=== PATIENT | male | born 1995 | race Two or more races ===

== ENCOUNTER 2018-02-01 11:24 | Emergency (ER) | payer OTHER ==
[~2018-02-01] VITALS: Ht 170.2 cm; Wt 63.5 kg
[~2018-02-01 11:24] MED LIST: ABILIFY2 MG ORAL; PROZAC10 MG ORAL
[2018-02-01 12:04] LABS: BASOPHILS % (AUTO) 0.7 % (0.0-2.0); EOSINOPHILS % (AUTO) 3.5 % (0.0-3.0); HEMATOCRIT 47.6 % (42.0-52.0); HEMOGLOBIN 15.9 G/DL (14.2-18.0); LYMPHOCYTES % (AUTO) 13.6 % (20.0-45.0); MEAN CORPUSCULAR VOLUME 83 FL (80-99); MONOCYTES % (AUTO) 5.2 % (1.0-10.0); PLATELET COUNT 286 K/UL (150-450); RED BLOOD COUNT 5.73 M/UL (4.70-6.10); RED CELL DISTRIBUTION WIDTH 11.5 % (11.6-14.8); WHITE BLOOD COUNT 7.8 K/UL (4.8-10.8)
[2018-02-01 12:14] LABS: ANION GAP 11 mmol/L (5-15); BLOOD UREA NITROGEN 6 mg/dL (7-18); CALCIUM 10.1 MG/DL (8.5-10.1); CARBON DIOXIDE 26 MMOL/L (21-32); CHLORIDE 103 MMOL/L (98-107); CREATININE 1.1 MG/DL (0.55-1.30); POTASSIUM 3.9 MMOL/L (3.5-5.1); SODIUM 140 MMOL/L (136-145)
[2018-02-01 12:17] LABS: ALANINE AMINOTRANSFERASE 36 U/L (12-78); ALBUMIN 4.3 G/DL (3.4-5.0); ALKALINE PHOSPHATASE 97 U/L (46-116); ASPARTATE AMINO TRANSFERASE 29 U/L (15-37); BILIRUBIN,TOTAL 0.2 MG/DL (0.2-1.0)
--- NOTE | 2018-02-01 12:29 | Emergency Room Report ---
History of Present Illness General Chief Complaint: Suicidal Source: Patient, EMS (Jerod Nicole DO) Present Illness HPI Patient present by paramedics for reports of suicidal ideations Patient however denies any active thoughts denies any headache Denies any chest pain or shortness of breath Patient reports that he has underlying schizophrenia and takes medication for that Denies any previous attempts of suicide (Jerod Nicole DO) Allergies: Coded Allergies: No Known Allergies (Unverified , 02/01/18) Patient History Past Medical History: see triage record Pertinent Family History: none Reviewed Nursing Documentation: PMH: Agreed; PSxH: Agreed (Jerod Nicole DO) Nursing Documentation-PMH History Of Psychiatric Problem: Yes (Jerod Nicole DO) Review of Systems All Other Systems: negative except mentioned in HPI (Jerod Nicole DO) Physical Exam Vital Signs Date Time Temp Pulse Resp B/P (MAP) Pulse Ox O2 Delivery O2 Flow Rate FiO2 02/01/18 11:12 98.6 110 18 110/60 99 Room Air Sp02 EP Interpretation: reviewed, normal General Appearance: well appearing, no apparent distress Head: normocephalic, atraumatic Eyes: bilateral eye PERRL, bilateral eye EOMI ENT: hearing grossly normal, normal pharynx, TMs + canals normal, uvula midline Neck: full range of motion, supple, no meningismus, no bony tend Respiratory: lungs clear, normal breath sounds, no rhonchi, no respiratory distress, no retraction, no accessory muscle use Cardiovascular #1: normal peripheral pulses, regular rate, rhythm, no edema, no gallop, no JVD, no murmur Gastrointestinal: normal bowel sounds, non tender, soft, no mass, no organomegaly, non-distended, no guarding, no hernia, no pulsatile mass, no rebound Genitourinary: no CVA tenderness Musculoskeletal: normal inspection Neurologic: oriented x3, responsive, pensions retirement plan specialist III-XII nml as tested, motor strength/ tone normal, sensory intact Psychiatric: mood/affect normal - Patient reports suicidal ideation, however does not have any specific plans Skin: normal color, no rash, warm/dry, palpation normal Lymphatic: normal inspection, no adenopathy (Jerod Nicole DO) Medical Decision Making Diagnostic Impression: Primary Impression: Suicidal ideation Additional Impression: Schizophrenia Qualified Codes: F20.9 - Schizophrenia, unspecified ER Course After the patient's presentation psychiatric specialty was contacted Please refer to her note for specific input however patient did have further medication provided by her Was also felt that the patient had been underdosed At this time it was also noted that the patient resides at a [facility] care facility Patient was cleared through psychiatric services if possible referral back to living facility as possible Patient is also medically stable and cleared And further disposition is being sought Labs Test 02/01/18 11:28 02/01/18 11:36 Urine Opiates Screen Negative (NEGATIVE) Urine Barbiturates Screen Negative (NEGATIVE) Phencyclidine (PCP) Screen Negative (NEGATIVE) Urine Amphetamines Screen Negative (NEGATIVE) Urine Benzodiazepines Screen Negative (NEGATIVE) Urine Cocaine Screen Negative (NEGATIVE) Urine Marijuana (THC) Screen Negative (NEGATIVE) White Blood Count 7.8 K/UL (4.8-10.8) Red Blood Count 5.73 M/UL (4.70-6.10) Hemoglobin 15.9 G/DL (14.2-18.0) Hematocrit 47.6 % (42.0-52.0) Mean Corpuscular Volume 83 FL (80-99) Mean Corpuscular Hemoglobin 27.8 PG (27.0-31.0) Mean Corpuscular Hemoglobin Concent 33.5 G/DL (32.0-36.0) Red Cell Distribution Width 11.5 % (11.6-14.8) Platelet Count 286 K/UL (150-450) Mean Platelet Volume 7.1 FL (6.5-10.1) Neutrophils (%) (Auto) 77.0 % (45.0-75.0) Lymphocytes (%) (Auto) 13.6 % (20.0-45.0) Monocytes (%) (Auto) 5.2 % (1.0-10.0) Eosinophils (%) (Auto) 3.5 % (0.0-3.0) Basophils (%) (Auto) 0.7 % (0.0-2.0) Sodium Level 140 MMOL/L (136-145) Potassium Level 3.9 MMOL/L (3.5-5.1) Chloride Level 103 MMOL/L (98-107) Carbon Dioxide Level 26 MMOL/L (21-32) Anion Gap 11 mmol/L (5-15) Blood Urea Nitrogen 6 mg/dL (7-18) Creatinine 1.1 MG/DL (0.55-1.30) Estimat Glomerular Filtration Rate > 60 mL/min (>60) Glucose Level 146 MG/DL (74-106) Calcium Level 10.1 MG/DL (8.5-10.1) Total Bilirubin 0.2 MG/DL (0.2-1.0) Aspartate Amino Transf (AST/SGOT) 29 U/L (15-37) Alanine Aminotransferase (ALT/SGPT) 36 U/L (12-78) Alkaline Phosphatase 97 U/L (46-116) Total Protein 8.7 G/DL (6.4-8.2) Albumin 4.3 G/DL (3.4-5.0) Globulin 4.4 g/dL Albumin/Globulin Ratio 1.0 (1.0-2.7) Salicylates Level 1.6 ug/mL (2.8-20) Acetaminophen Level < 2 MCG/ML (10-30) Serum Alcohol < 3 mg/dL (Jerod Nicole DO) ER Course Please see above note. Patient is voluntary at this time. There are several reasons why the 5150 is not valid at this time. Patient was evaluated by our psychiatrist and cleared for voluntary treatment. (Otis Dela Cruz MD) Last Vital Signs Date Time Temp Pulse Resp B/P (MAP) Pulse Ox O2 Delivery O2 Flow Rate FiO2 02/01/18 11:55 100 18 Room Air 02/01/18 11:12 98.6 110/60 99 Status: improved (Jerod Nicole DO) Disposition: HOME, SELF-CARE Condition: Improved Jerod Nicole DO Feb 01, 2018 12:29 Otis Dela Cruz MD Feb 01, 2018 18:36
--- NOTE | 2018-02-01 12:39 | Consultation ---
History of Present Illness General Chief Complaint: Suicidal Present Illness HPI 22 yo male with hx of schizophenia came in on vol status. the pt was somewhat disorganized and delusional the pt stated that he hd suicidal thoughts but if we find him a place he would rather go to a board and care. then he changed his mind and stated that he was suicidal the real property appraiser came to er and put him on 5150 and he was transferred to [facility] hospital Allergies: Coded Allergies: No Known Allergies (Unverified , 02/01/18) Medication History Scheduled Aripiprazole* (Abilify*), MG ORAL DAILY, (Reported) Fluoxetine Hcl* (Prozac*), MG ORAL DAILY, (Reported) Patient History Healthcare decision maker Resuscitation status Advanced Directive on File Physical Exam Last 24 Hour Vital Signs Date Time Temp Pulse Resp B/P (MAP) Pulse Ox O2 Delivery O2 Flow Rate FiO2 02/01/18 11:55 100 18 Room Air 02/01/18 11:12 98.6 110 18 110/60 99 Room Air Laboratory Tests Test 02/01/18 11:28 02/01/18 11:36 Urine Opiates Screen Negative (NEGATIVE) Urine Barbiturates Screen Negative (NEGATIVE) Phencyclidine (PCP) Screen Negative (NEGATIVE) Urine Amphetamines Screen Negative (NEGATIVE) Urine Benzodiazepines Screen Negative (NEGATIVE) Urine Cocaine Screen Negative (NEGATIVE) Urine Marijuana (THC) Screen Negative (NEGATIVE) White Blood Count 7.8 K/UL (4.8-10.8) Red Blood Count 5.73 M/UL (4.70-6.10) Hemoglobin 15.9 G/DL (14.2-18.0) Hematocrit 47.6 % (42.0-52.0) Mean Corpuscular Volume 83 FL (80-99) Mean Corpuscular Hemoglobin 27.8 PG (27.0-31.0) Mean Corpuscular Hemoglobin Concent 33.5 G/DL (32.0-36.0) Red Cell Distribution Width 11.5 % (11.6-14.8) L Platelet Count 286 K/UL (150-450) Mean Platelet Volume 7.1 FL (6.5-10.1) Neutrophils (%) (Auto) 77.0 % (45.0-75.0) H Lymphocytes (%) (Auto) 13.6 % (20.0-45.0) L Monocytes (%) (Auto) 5.2 % (1.0-10.0) Eosinophils (%) (Auto) 3.5 % (0.0-3.0) H Basophils (%) (Auto) 0.7 % (0.0-2.0) Sodium Level 140 MMOL/L (136-145) Potassium Level 3.9 MMOL/L (3.5-5.1) Chloride Level 103 MMOL/L (98-107) Carbon Dioxide Level 26 MMOL/L (21-32) Anion Gap 11 mmol/L (5-15) Blood Urea Nitrogen 6 mg/dL (7-18) L Creatinine 1.1 MG/DL (0.55-1.30) Estimat Glomerular Filtration Rate > 60 mL/min (>60) Glucose Level 146 MG/DL (74-106) H Calcium Level 10.1 MG/DL (8.5-10.1) Total Bilirubin 0.2 MG/DL (0.2-1.0) Aspartate Amino Transf (AST/SGOT) 29 U/L (15-37) Alanine Aminotransferase (ALT/SGPT) 36 U/L (12-78) Alkaline Phosphatase 97 U/L (46-116) Total Protein 8.7 G/DL (6.4-8.2) H Albumin 4.3 G/DL (3.4-5.0) Globulin 4.4 g/dL Albumin/Globulin Ratio 1.0 (1.0-2.7) Salicylates Level 1.6 ug/mL (2.8-20) L Acetaminophen Level < 2 MCG/ML (10-30) L Serum Alcohol < 3 mg/dL Height (Feet): 5 Height (Inches): 7.00 Weight (Pounds): 140 Mary Nicole MD Feb 01, 2018 12:39
[2018-02-01] MEDS ORDERED: Haloperidol Decanoate 50mg Inj IM SCH (12:47)
[2018-02-01] MEDS ORDERED: LORazepam 0.5mg tab ORAL SCH (12:48)
[2018-02-01 13:55] VITALS: BP 117/62
[2018-02-01 15:19] VITALS: BP 129/73
[2018-02-01 17:01] VITALS: BP 125/76
[2018-02-01 18:32] VITALS: BP 116/75
[2018-02-01 20:37] VITALS: BP 118/76
[2018-02-01 20:40] VITALS: BP 118/76
== END 2018-02-01 20:30 ==
LOC: EDBD 11:24 → EMR 12:20
DX: R45.851 Suicidal ideations (principal); F20.9 Schizophrenia, unspecified
CPT/HCPCS: 36415; 80053; 80307; 80329; 85025; 96372; 99285; J1631

== ENCOUNTER 2019-03-19 05:14 | Emergency (ER) | payer OTHER ==
[~2019-03-19] VITALS: Ht 170.2 cm; Wt 65.8 kg
[~2019-03-19 05:14] MED LIST changes: +IBUPROFEN400 MG ORAL
--- NOTE | 2019-03-19 05:27 | NUR ---
ED Nurse Note: pt presents to ED c/o L foot and ankle pain for several days. pt was seen here a day ago for the same thing,xrays were negative. pt denies any trauma or injury to the area since then. pt states it hurts for him to walk and it looks more swollen than the R side. pt also states he is hearing voices that he does not take meds for. pt has a h/o meth use
--- NOTE | 2019-03-19 05:35 | NUR ---
ED Nurse Note: pt's left foot was wrapped and pt was given crutches as well as instruction on how to use them. pt verablized understanding of teachings and was provided with a sandwhich and juice
[2019-03-19] MEDS ORDERED: Haloperidol Decanoate (Long Acting) 50mg Inj IM ONE (05:45)
[2019-03-19] MEDS ORDERED: ZYPREXA5 MG ORAL (06:03)
[2019-03-19 06:10] VITALS: BP 118/72
--- NOTE | 2019-03-19 06:10 | NUR ---
ER DISCHARGE NOTE: Patient is cleared to be discharged per ERMD, pt is aox4, on room air, with stable vital signs. pt was given dc and prescription instructions. understanding, pt id band removed without complications. pt is able to use crutches without complications and left with all belongings.
== END 2019-03-19 06:15 | disposition home or self-care (01) ==
LOC: EMR 05:33
DX: M79.605 Pain in left leg (principal)
CPT/HCPCS: 99282